=== PATIENT | female | born 1985 | race Caucasian/White ===

== ENCOUNTER 2017-03-16 03:36 | Emergency (ER) | payer MEDICAID ==
[2017-03-16] MEDS ORDERED: TYLENOL ONE (04:27)
[2017-03-16] MEDS ORDERED: TYLENOL PO ONE (04:33)
[2017-03-16 05:11] LABS: Eosinophils % (Auto) 1.4 % (0.0-4.3); Hematocrit 36.7 % (30.3-42.9); Hemoglobin 12.2 gm/dl (10.1-14.3); Mean Corpuscular HGB Conc 33 % (30-34); Mean Corpuscular Hemoglobin 29 pg (28-32); Mean Corpuscular Volume 86 fl (79-97); Platelet Count 231 K/mm3 (140-440); Red Blood Count 4.28 M/mm3 (3.65-5.03); Red Cell Distribution Width 16.6 % (13.2-15.2); White Blood Count 5.4 K/mm3 (4.5-11.0)
[2017-03-16 05:21] LABS: Urine Drugs of Abuse Note Disclamer
[2017-03-16 05:27] LABS: Alanine Aminotransferase 17 units/L (7-56); Albumin 4.1 g/dL (3.9-5); Albumin/Globulin Ratio 1.6 %; Alkaline Phosphatase 82 units/L (35-129); Anion Gap 17 mmol/L; BUN/Creatinine Ratio 20; Bilirubin,Total < 0.20 mg/dL (0.1-1.2); Blood Urea Nitrogen 12 mg/dL (7-17); Calcium 9.1 mg/dL (8.4-10.2); Carbon Dioxide 23 mmol/L (22-30); Chloride 104.5 mmol/L (98-107); Glucose 99 mg/dL (65-100); Potassium 4.7 mmol/L (3.6-5.0); Sodium 140 mmol/L (137-145); Total Protein 6.7 g/dL (6.3-8.2)
[2017-03-16 05:33] LABS: Bilirubin,Urine NEG (Negative); Blood,Urine NEG (Negative); Ketones,Urine NEG (Negative); Leukocyte Esterase,Urine NEG (Negative); Mucus,Urine FEW /HPF; Nitrite,Urine NEG (Negative); Protein,Urine <15 mg/dL mg/dL (Negative); Urobilinogen,Urine < 2.0 mg/dL (<2.0); WBC,Urine < 1.0 /HPF (0.0-6.0)
--- NOTE | 2017-03-16 07:13 | Cat Scan Report ---
FINAL REPORT EXAM: CT HEAD/BRAIN WO CON HISTORY: seizure TECHNIQUE: Routine axial imaging was obtained of the brain without IV contrast. FINDINGS: The ventricular system is appropriate in size and is symmetric. There is no evidence of acute stroke or hemorrhage. The basal cisterns appear normal. The visualized sinuses are clear. The mastoid air cells are well pneumatized. IMPRESSION: Within normal limits.
--- NOTE | 2017-03-16 09:09 | Emergency Department Report ---
ED Seizure HPI - General Chief Complaint: Seizure Stated Complaint: SEIZURE ACTIVITY Time Seen by Provider: 03/16/17 09:08 Source: patient Mode of arrival: Ambulatory Limitations: No Limitations - History of Present Illness Initial Comments: Patient presents with her boyfriend who states that he witnessed a seizure. She had generalized shaking. She bit her tongue. EMS arrived at the scene and transported the patient without incident to this facility in a postictal state. At the time of my encounter the patient was oriented 4 but still a bit lethargic. She denied headache. She denied previous seizure. She denied any fever or chills recently. She had no specific complaint other than that her tongue was sore. MD Complaint: seizure -: Sudden Description of Episode: tonic-clonic movement -: second(s), minutes(s) Witnessed:: Yes Trauma: Yes (bit tongue.) Seizure History: none Place: home Possible Precipitating Event: none Associated Symptoms: denies other symptoms Treatments Prior to Arrival: none - Related Data Previous Rx's Medication Instructions Recorded Last Taken Type Ondansetron [Zofran TAB] 4 mg PO Q8HR PRN #30 tablet 01/12/17 Unknown Rx traMADol [Ultram 50 MG tab] 50 mg PO Q6HR PRN #14 tablet 01/12/17 Unknown Rx levETIRAcetam [Keppra] 500 mg PO BID #60 tablet 03/16/17 Unknown Rx Allergies Allergy/AdvReac Type Severity Reaction Status Date / Time latex Allergy Rash Verified 01/10/17 10:22 ED Review of Systems ROS: Stated complaint: SEIZURE ACTIVITY Other details as noted in HPI Constitutional: denies: chills, fever Eyes: denies: eye pain, eye discharge, vision change ENT: as per HPI. denies: ear pain, throat pain Respiratory: denies: cough, shortness of breath, wheezing Cardiovascular: denies: chest pain, palpitations Endocrine: no symptoms reported Gastrointestinal: denies: abdominal pain, nausea, diarrhea Genitourinary: denies: urgency, dysuria, discharge Musculoskeletal: denies: back pain, joint swelling, arthralgia Skin: denies: rash, lesions Neurological: as per HPI. denies: headache, weakness, paresthesias Psychiatric: denies: anxiety, depression Hematological/Lymphatic: denies: easy bleeding, easy bruising ED Past Medical Hx - Past Medical History Hx Asthma: Yes - Surgical History Hx Appendectomy: Yes Additional Surgical History: tonsillectomy - Social History Smoking Status: Never Smoker Substance Use Type: None - Medications Home Medications: Home Medications Medication Instructions Recorded Confirmed Last Taken Type Ondansetron [Zofran TAB] 4 mg PO Q8HR PRN #30 tablet 01/12/17 Unknown Rx traMADol [Ultram 50 MG tab] 50 mg PO Q6HR PRN #14 tablet 01/12/17 Unknown Rx levETIRAcetam [Keppra] 500 mg PO BID #60 tablet 03/16/17 Unknown Rx ED Physical Exam - General Limitations: No Limitations General appearance: alert, in no apparent distress - Head Head exam: Present: atraumatic, normocephalic - Eye Eye exam: Present: normal appearance - ENT ENT exam: Present: mucous membranes moist, other (abrasion left lateral side of the tongue. No bleeding. Airways patent.) - Neck Neck exam: Present: normal inspection - Respiratory Respiratory exam: Present: normal lung sounds bilaterally. Absent: respiratory distress - Cardiovascular Cardiovascular Exam: Present: regular rate, normal rhythm. Absent: systolic murmur, diastolic murmur, rubs, gallop - GI/Abdominal GI/Abdominal exam: Present: soft, normal bowel sounds. Absent: distended, tenderness, guarding, rebound, rigid - Extremities Exam Extremities exam: Present: normal inspection - Back Exam Back exam: Present: normal inspection - Neurological Exam Neurological exam: Present: alert, oriented X3, CN II-XII intact. Absent: motor sensory deficit - Psychiatric Psychiatric exam: Present: normal affect, normal mood - Skin Skin exam: Present: warm, dry, intact, normal color. Absent: rash ED Course Vital Signs 03/16/17 03/16/17 03/16/17 04:11 06:46 07:10 Temperature 98.1 F 98.7 F Pulse Rate 92 H 66 Respiratory 17 Rate Blood Pressure 123/78 Blood Pressure 108/62 [Left] O2 Sat by Pulse 100 98 98 Oximetry 03/16/17 03/16/17 03/16/17 07:15 07:30 07:45 Temperature Pulse Rate Respiratory Rate Blood Pressure 110/64 117/63 117/65 Blood Pressure [Left] O2 Sat by Pulse 97 93 96 Oximetry 03/16/17 03/16/17 03/16/17 08:00 08:15 08:30 Temperature Pulse Rate Respiratory Rate Blood Pressure 119/73 110/68 117/65 Blood Pressure [Left] O2 Sat by Pulse 95 96 97 Oximetry 03/16/17 03/16/17 03/16/17 08:45 09:00 09:15 Temperature Pulse Rate Respiratory Rate Blood Pressure 114/65 127/72 118/75 Blood Pressure [Left] O2 Sat by Pulse 96 97 99 Oximetry 03/16/17 03/16/17 03/16/17 09:30 09:45 10:00 Temperature Pulse Rate Respiratory Rate Blood Pressure 112/65 105/60 110/51 Blood Pressure [Left] O2 Sat by Pulse 100 97 94 Oximetry 03/16/17 03/16/17 03/16/17 10:16 10:30 10:45 Temperature Pulse Rate 67 62 Respiratory 14 14 Rate Blood Pressure 112/65 112/73 120/67 Blood Pressure [Left] O2 Sat by Pulse 99 98 96 Oximetry 03/16/17 03/16/17 03/16/17 11:00 11:15 11:30 Temperature Pulse Rate 64 65 69 Respiratory 20 16 16 Rate Blood Pressure 120/61 108/62 112/66 Blood Pressure [Left] O2 Sat by Pulse 95 96 97 Oximetry 03/16/17 03/16/17 03/16/17 11:45 12:00 12:15 Temperature Pulse Rate 65 66 71 Respiratory 15 16 18 Rate Blood Pressure 113/62 118/66 105/70 Blood Pressure [Left] O2 Sat by Pulse 97 95 98 Oximetry 03/16/17 12:32 Temperature Pulse Rate Respiratory Rate Blood Pressure 105/70 Blood Pressure [Left] O2 Sat by Pulse 93 Oximetry ED Medical Decision Making - Lab Data Result diagrams: 03/16/17 04:49 03/16/17 04:49 Laboratory Results - last 24 hr 03/16/17 03/16/17 03/16/17 04:29 04:31 04:49 WBC 5.4 RBC 4.28 Hgb 12.2 Hct 36.7 MCV 86 MCH 29 MCHC 33 RDW 16.6 H Plt Count 231 Lymph % (Auto) 21.9 [place] % (Auto) 6.1 Eos % (Auto) 1.4 Baso % (Auto) 1.0 Lymph # 1.2 Sutton # 0.3 Eos # 0.1 Baso # 0.1 Seg Neutrophils % 69.6 Seg Neutrophils # 3.7 Sodium Potassium Chloride Carbon Dioxide Anion Gap BUN Creatinine Estimated GFR BUN/Creatinine Ratio Glucose Calcium Total Bilirubin AST ALT Alkaline Phosphatase Total Protein Albumin Albumin/Globulin Ratio Urine Color Yellow Urine Turbidity Clear Urine pH 5.0 Ur Specific [place] 1.020 Urine Protein <15 mg/dl Urine Glucose (UA) Neg Urine Ketones Neg Urine Blood Neg Urine Nitrite Neg Urine Bilirubin Neg Urine Urobilinogen < 2.0 Ur Leukocyte Esterase Neg Urine WBC (Auto) < 1.0 Urine RBC (Auto) 2.0 U Epithel Cells (Auto) 1.0 Urine Mucus Few Urine HCG, Qual Negative Urine Opiates Screen Presumptive negative Urine Methadone Screen Presumptive negative Ur Barbiturates Screen Presumptive negative Ur Phencyclidine Scrn Presumptive negative Ur Amphetamines Screen Presumptive negative U Benzodiazepines Scrn Presumptive negative Urine Cocaine Screen Presumptive negative U Marijuana (THC) Screen Presumptive positive Drugs of Abuse Note Disclamer 03/16/17 04:49 WBC RBC Hgb Hct MCV MCH MCHC RDW Plt Count Lymph % (Auto) [place] % (Auto) Eos % (Auto) Baso % (Auto) Lymph # [place] # Eos # Baso # Seg Neutrophils % Seg Neutrophils # Sodium 140 Potassium 4.7 Chloride 104.5 Carbon Dioxide 23 Anion Gap 17 BUN 12 Creatinine 0.6 L Estimated GFR > 60 BUN/Creatinine Ratio 20 Glucose 99 Calcium 9.1 Total Bilirubin < 0.20 AST 17 ALT 17 Alkaline Phosphatase 82 Total Protein 6.7 Albumin 4.1 Albumin/Globulin Ratio 1.6 Urine Color Urine Turbidity Urine pH Ur Specific [place] Urine Protein Urine Glucose (UA) Urine Ketones Urine Blood Urine Nitrite Urine Bilirubin Urine Urobilinogen Ur Leukocyte Esterase Urine WBC (Auto) Urine RBC (Auto) U Epithel Cells (Auto) Urine Mucus Urine HCG, Qual Urine Opiates Screen Urine Methadone Screen Ur Barbiturates Screen Ur Phencyclidine Scrn Ur Amphetamines Screen U Benzodiazepines Scrn Urine Cocaine Screen U Marijuana (THC) Screen Drugs of Abuse Note Critical care attestation.: If time is entered above; I have spent that time in minutes in the direct care of this critically ill patient, excluding procedure time. ED Disposition Clinical Impression: Seizure Abrasion of tongue Qualifiers: Encounter type: initial encounter Qualified Code(s): S00.512A - Abrasion of oral cavity, initial encounter Disposition: TO HOME OR SELFCARE Is pt being admited?: No Does the pt Need Aspirin: No Condition: Stable Instructions: New-Onset Seizure in Adults (ED) Additional Instructions: Do not drive until cleared by neurologist or qualify physician. See referral. Rx for seizure medicine. Also he may seek follow-up at this outside medical clinic. Prescriptions: levETIRAcetam [Keppra] 500 mg PO BID #60 tablet Referrals: [facility] [Provider Group] - 3-5 Days JAGJIT GARRISON MD [Staff Physician] - 3-5 Days PRIMARY CAREMD [Primary Care Provider] - 3-5 Days Time of Disposition: 14:00
[2017-03-16] MEDS ORDERED: KEPPRA 1,000 MG/NS 0.75% 100ML 1,000 MG/100 ML BAG IV ONE (09:29)
[2017-03-16 13:01] VITALS: BP 105/70
== END 2017-03-16 13:04 | disposition home or self-care (01) ==
LOC: ED 03:36
DX: S00.512A Abrasion of oral cavity, initial encounter (principal); R56.9 Unspecified convulsions; J45.909 Unspecified asthma, uncomplicated; X58.XXXA Exposure to other specified factors, initial encounter; Y93.89 Activity, other specified; Y92.89 Other specified places as the place of occurrence of the external cause; Y99.8 Other external cause status
CPT/HCPCS: 36415; 70450; 80053; 80307; 81001; 81025; 85025; 96374; 99284; J1953

== ENCOUNTER 2017-08-31 11:07 | Emergency (ER) | payer SELFPAY ==
[2017-08-31 11:37] LABS: Basophils # (Auto) 0.1 K/mm3 (0.0-0.1); Basophils % (Auto) 0.5 % (0.0-1.8); Eosinophils % (Auto) 0.1 % (0.0-4.3); Hematocrit 38.3 % (30.3-42.9); Hemoglobin 12.3 gm/dl (10.1-14.3); Lymphocytes # (Auto) 1.4 K/mm3 (1.2-5.4); Lymphocytes % (Auto) 13.8 % (13.4-35.0); Mean Corpuscular HGB Conc 32 % (30-34); Mean Corpuscular Volume 80 fl (79-97); Monocytes # (Auto) 0.9 K/mm3 (0.0-0.8); Monocytes % (Auto) 8.9 % (0.0-7.3); Platelet Count 322 K/mm3 (140-440); Red Blood Count 4.77 M/mm3 (3.65-5.03); Red Cell Distribution Width 16.6 % (13.2-15.2)
[2017-08-31 11:48] LABS: Mean Corpuscular Hemoglobin 26 pg (28-32)
[2017-08-31 12:02] LABS: Alanine Aminotransferase 35 units/L (7-56); Albumin 4.7 g/dL (3.9-5); BUN/Creatinine Ratio 28; Blood Urea Nitrogen 17 mg/dL (7-17); Hemolysis Index 4; Lipase 58 units/L (13-60)
[2017-08-31 12:09] LABS: Bilirubin,Urine NEG (Negative); Blood,Urine NEG (Negative); Color,Urine Yellow (Yellow); Mucus,Urine FEW /HPF; Urobilinogen,Urine < 2.0 mg/dL (<2.0)
[2017-08-31] MEDS ORDERED: NACL 0.9% 1000 ML 1,000 ML IV ONE (13:54)
[2017-08-31] MEDS ORDERED: ZOFRAN IV ONE (13:54)
--- NOTE | 2017-08-31 13:59 | Emergency Department Report ---
Blank Doc - Documentation Documentation: 32-year-old female with no significant past medical history team in complaining of nausea vomiting for 3 days after eating Vietnamese food. Patient states she ate some lemon pepper chicken and since then she's been having nausea vomiting abdominal pain. She denies any chest pain shortness of breath. She denies fever chills. Patient in no acute distress. P; IV fluids, Ct scan
--- NOTE | 2017-08-31 15:44 | Cat Scan Report ---
FINAL REPORT EXAM: CT ABDOMEN PELVIS WO CON HISTORY: abdominal pain TECHNIQUE: Standard unenhanced CT of the abdomen and pelvis. Coronal and sagittal reconstruction was also performed. PRIORS: CT a/P 01/10/2017 FINDINGS: Within the abdomen, the liver, spleen, pancreas, gallbladder, adrenal glands, and right kidney are unremarkable. There are 2 nonobstructing calculi in the lower pole left kidney. No evidence for retroperitoneal or pelvic lymphadenopathy is seen. The bowel loops have normal caliber. No soft tissue mass, fluid collection, inflammatory change, or free air is seen within the abdomen or pelvis. The appendix is not visualized. Within the pelvis, the bladder demonstrates mild diffuse wall prominence, stable. No intraluminal air within the bladder is seen. The uterus is normal. Multiple tiny cysts are present in the left ovary, likely the physiologic. A sliver of free fluid in the cul-de-sac is noted. No evidence for mass or lymphadenopathy is seen in the pelvis. Images through the upper abdomen include the lung bases which demonstrates linear scarring in the right middle lobe and left lower lobe, stable. Bony structures show no focal abnormalities and are intact. IMPRESSION: 1. no acute intra-abdominal process noted. 2. Nonobstructing left renal calculi 3. Probable physiologic small cyst in the left ovary with sliver of free fluid in the cul-de-sac, nonspecific. 4. The bladder wall is mildly prominent throughout but this is a stable feature.
--- NOTE | 2017-08-31 17:27 | Emergency Department Report ---
Vomiting/Diarrhea - HPI Chief Complaint: Abdominal Pain Stated Complaint: VOMITING Time Seen by Provider: 08/31/17 13:46 Duration: 3 Days Severity: moderate Nausea/Vomiting Severity: Moderate Diarrhea Severity: None Pain Location: Generalized Pain Severity: Mild Symptoms: Yes Watery Diarrhea, Yes Able to Tolerate Fluids, No Bloody diarrhea, No Fever, No Recent Unusual Foods (lemon pepper wings from [employer] restaurant), No Recent Untreated Water, No Recent use of Antibiotics, No Family w/ Similar Symptoms, No Contacts w/ Similar Symptoms, No Rash, No Hematuria, No Recent URI Symptoms Other History: This is a 32-year-old -[place] Citizen female Presents with nausea and vomiting and abdominal pain for 3 days. She has no significant past medical history.patient reports eating lemon pepper chicken from [employer] restaurant 3 days ago and having nausea and vomiting with diarrhea every since. She has not taken anything for symptom relief. She denies any chest pain, shortness of breath, fever and chills. ED Review of Systems ROS: Stated complaint: VOMITING Other details as noted in HPI Constitutional: denies: chills, fever Respiratory: denies: cough, shortness of breath, wheezing Cardiovascular: denies: chest pain, palpitations, edema, syncope Gastrointestinal: abdominal pain (diffuse abdominal pain), nausea, vomiting. denies: diarrhea Neurological: denies: headache, weakness, numbness, paresthesias Psychiatric: denies: anxiety, depression ED Past Medical Hx - Past Medical History Hx Asthma: Yes - Surgical History Hx Appendectomy: Yes Additional Surgical History: tonsillectomy - Social History Smoking Status: Never Smoker Substance Use Type: None - Medications Home Medications: Home Medications Medication Instructions Recorded Confirmed Last Taken Type Ondansetron [Zofran TAB] 4 mg PO Q8HR PRN #30 tablet 01/12/17 Unknown Rx traMADol [Ultram 50 MG tab] 50 mg PO Q6HR PRN #14 tablet 01/12/17 Unknown Rx levETIRAcetam [Keppra] 500 mg PO BID #60 tablet 03/16/17 Unknown Rx Ondansetron [Zofran Odt] 4 mg PO TID PRN #20 tab.rapdis 08/31/17 Unknown Rx Vomiting Diarrhea Exam - Exam General: Vital signs noted. No distress. Alert and acting appropriately. HEENT: Yes Moist Mucous Membranes, Yes Rhinorrhea (turbinates mildly congested with clear discharge), No Pharyngeal Erythema, No Pharyngeal Exudates, No Conjuctival Injection, No Frontal Tenderness, No Maxillary Tenderness Neck: No Adenopathy, No Rigidity Lungs: Yes Clear Lung Sounds, Yes Good Air Exchange, No Wheezes, No Stridor, No Cough, No Nasal Flaring, No Retractions, No Use of Accessory Muscles Heart exam: Regular: Yes, Murmur: No, Tachycardia: No Abdomen: Tenderness: Yes (RLQ and LLQ), Peritoneal Signs: No, Distention: No, Hyperactive Bowel sounds: No Skin exam: Rash: No, Edema: No, Normal turgor: Yes Neurologic: Alert and oriented, no deficits. Musculoskeletal: Unremarkable. ED Course Vital Signs 08/31/17 11:18 Temperature 98.7 F Pulse Rate 73 Respiratory 20 Rate Blood Pressure 130/88 O2 Sat by Pulse 100 Oximetry ED Medical Decision Making - Lab Data Result diagrams: 08/31/17 11:20 08/31/17 11:20 - Radiology Data Radiology results: report reviewed CT of abdomen: no acute intraabdominal process. - Medical Decision Making 32 y.o. female that presents with abdominal pain, nausea and vomiting for 2 days. Patient examined by me, slightly distressed. Vital stable. Given CT of abdomen and pelvis obtained. Patient informed of normal scan. Given 1 L normal saline bolus and Zofran 4 mg IV. Obtained CBC, UA, & CMP, all unremarkable. Start Zofran for gastroenteritis and review supportive care instructions with patient. Discharged home. Follow up with PCP in 48-72 hours. Critical care attestation.: If time is entered above; I have spent that time in minutes in the direct care of this critically ill patient, excluding procedure time. ED Disposition Clinical Impression: Gastroenteritis Disposition: DC-01 TO HOME OR SELFCARE Is pt being admited?: No Does the pt Need Aspirin: No Condition: Stable Instructions: Gastroenteritis (ED), Acute Nausea and Vomiting (ED), Abdominal Pain (ED) Additional Instructions: Frequent hand washing is important to reduce spread. Prompt disinfection of contaminated surfaces with household chlorine bleach- based relocation specialist and washing of soiled clothing and bedding should be advised. If food or water is thought to be contaminated, it should be avoided. Increase fluid intake. Drinks high in sugars such as carbonated soft drinks, fruit juice, and highly sugared liquids should be avoided. Prescriptions: Ondansetron [Zofran Odt] 4 mg PO TID PRN #20 tab.rapdis PRN Reason: Nausea And Vomiting Referrals: [facility] [Outside] - 3-5 Days [facility] [Outside] - 3-5 Days [facility] [Outside] - 3-5 Days Forms: Work/School Release Form(ED) Time of Disposition: 17:35 Print Language: KITTITIAN
[2017-08-31 17:45] VITALS: BP 128/70
== END 2017-08-31 17:44 | disposition home or self-care (01) ==
LOC: ED 11:07
DX: K52.9 Noninfective gastroenteritis and colitis, unspecified (principal); J45.909 Unspecified asthma, uncomplicated; Z90.89 Acquired absence of other organs
CPT/HCPCS: 36415; 74176; 80053; 81001; 83690; 84703; 85025; 96361; 96374; 99284; J2405; J7030

== ENCOUNTER 2017-12-26 03:50 | Inpatient (IN) | payer OTHER ==
[2017-12-26] MEDS ORDERED: NACL 0.9% 1000 ML IV ONE (04:21)
[2017-12-26] MEDS ORDERED: ZOFRAN IV ONE (04:24)
[2017-12-26] MEDS ORDERED: SUBLIMAZE IV ONE (04:24)
--- NOTE | 2017-12-26 04:25 | Emergency Department Report ---
<LISBETH GERARDO - Last Filed: 12/26/17 05:49> ED General Adult HPI - General Chief complaint: Abdominal Pain Stated complaint: ABD PAIN Time Seen by Provider: 12/26/17 04:09 Source: patient, family, RN notes reviewed Mode of arrival: Ambulatory Limitations: Physical Limitation - History of Present Illness Initial comments: This is a 32-year-old female who is not known to this provider previously. Has a past medical history of possible bacterial colitis. The patient presents to the ER today with a complaint of abdominal pain, nausea, vomiting, headache, malaise, fatigue. She reports a global headache a few days ago, which is not sudden or thunderclap in nature. There is no neck pain or neck stiffness. She reports profuse nausea and vomiting over the past few days, and onset of substernal chest pain 2 days ago, worsened with vomiting. She denies DVT, pulmonary embolus risk factors. Her pain is constant, her abdominal pain increases with palpation and decreases with rest, she has trouble localizing her pain. -: Gradual Location: head, chest, abdomen Quality: aching Consistency: intermittent Improves with: other Worsens with: other Associated Symptoms: chest pain, fever/chills, headaches, loss of appetite, malaise, nausea/vomiting, weakness. denies: confusion, cough, diaphoresis, rash , seizure, shortness of breath, syncope - Related Data Previous Rx's Medication Instructions Recorded Last Taken Type Ondansetron [Zofran TAB] 4 mg PO Q8HR PRN #30 tablet 01/12/17 Unknown Rx traMADol [Ultram 50 MG tab] 50 mg PO Q6HR PRN #14 tablet 01/12/17 Unknown Rx levETIRAcetam [Keppra] 500 mg PO BID #60 tablet 03/16/17 Unknown Rx Ondansetron [Zofran Odt] 4 mg PO TID PRN #20 tab.rapdis 08/31/17 Unknown Rx Allergies Allergy/AdvReac Type Severity Reaction Status Date / Time latex Allergy Rash Verified 08/31/17 11:17 ED Review of Systems ROS: Stated complaint: ABD PAIN Other details as noted in HPI Constitutional: malaise Eyes: denies: eye discharge ENT: denies: epistaxis Respiratory: denies: cough Cardiovascular: chest pain Gastrointestinal: abdominal pain, nausea, vomiting Genitourinary: denies: dysuria Musculoskeletal: arthralgia Skin: denies: lesions Neurological: headache, weakness Psychiatric: anxiety ED Past Medical Hx - Past Medical History Previous Medical History?: Yes Hx Asthma: Yes - Surgical History Hx Appendectomy: Yes Additional Surgical History: tonsillectomy - Social History Smoking Status: Current Every Day Smoker Substance Use Type: Marijuana - Medications Home Medications: Home Medications Medication Instructions Recorded Confirmed Last Taken Type Ondansetron [Zofran TAB] 4 mg PO Q8HR PRN #30 tablet 01/12/17 12/26/17 Unknown Rx traMADol [Ultram 50 MG tab] 50 mg PO Q6HR PRN #14 tablet 01/12/17 12/26/17 Unknown Rx levETIRAcetam [Keppra] 500 mg PO BID #60 tablet 03/16/17 12/26/17 Unknown Rx Ondansetron [Zofran Odt] 4 mg PO TID PRN #20 tab.rapdis 08/31/17 12/26/17 Unknown Rx ED Physical Exam - General Limitations: No Limitations General appearance: alert, in distress, obese - Head Head exam: Present: atraumatic, normocephalic - Eye Eye exam: Present: normal appearance, EOMI. Absent: nystagmus - ENT ENT exam: Present: normal exam, normal orophraynx, mucous membranes moist, normal external ear exam - Neck Neck exam: Present: normal inspection, full ROM - Respiratory Respiratory exam: Present: normal lung sounds bilaterally. Absent: respiratory distress - Cardiovascular Cardiovascular Exam: Present: normal rhythm, tachycardia, normal heart sounds. Absent: systolic murmur, diastolic murmur, rubs, gallop - GI/Abdominal GI/Abdominal exam: Present: soft, tenderness, normal bowel sounds, other (there is right upper quadrant tenderness. There is a positive Gonzalez sign.). Absent : distended, guarding, rebound, rigid, pulsatile mass - Extremities Exam Extremities exam: Present: normal inspection, full ROM, normal capillary refill , other (2+ pulses noted in the bilateral upper, lower extremities. Compartments soft. No long bony tenderness. The pelvis is stable.). Absent: tenderness, pedal edema, joint swelling, calf tenderness - Back Exam Back exam: Present: normal inspection, full ROM, CVA tenderness (R), CVA tenderness (L), paraspinal tenderness. Absent: tenderness - Neurological Exam Neurological exam: Present: alert, oriented X3, CN II-XII intact, other ( Extraocular movements intact. Tongue midline. No facial droop. Facial sensation intact to light touch in the V1, V2, V3 distribution bilaterally. 5 and 5 strength in 4 extremities.. Sensation is intact to light touch in 4 extremities.). Absent: motor sensory deficit - Psychiatric Psychiatric exam: Present: anxious - Skin Skin exam: Present: warm, dry, intact, normal color. Absent: rash ED Course Vital Signs 12/26/17 12/26/17 12/26/17 03:58 04:13 04:15 Temperature 99.1 F Pulse Rate 147 H 132 H 127 H Respiratory 28 H 12 13 Rate Blood Pressure 109/70 127/85 O2 Sat by Pulse 100 100 Oximetry 12/26/17 12/26/17 12/26/17 04:30 04:46 05:00 Temperature Pulse Rate 129 H 101 H 111 H Respiratory 12 14 22 Rate Blood Pressure 127/85 141/105 140/87 O2 Sat by Pulse 100 96 88 Oximetry 12/26/17 12/26/17 12/26/17 05:15 05:25 05:30 Temperature Pulse Rate 87 90 Respiratory 11 L 15 10 L Rate Blood Pressure 135/88 144/90 O2 Sat by Pulse 97 75 L Oximetry 12/26/17 12/26/17 06:32 06:46 Temperature Pulse Rate 92 H 92 H Respiratory 23 14 Rate Blood Pressure 132/100 144/90 O2 Sat by Pulse 100 100 Oximetry - Reevaluation(s) Reevaluation #1: 12/26/17 05:51 Differential diagnoses, including but not limited to: GERD, gastritis, pancreatitis, cholecystitis, pneumonia, reflux, esophagitis, acute coronary syndrome, pericarditis, myocarditis, viral syndrome, bacteremia Assessment and plan: 32-year-old female with headache, chest pain, abdominal pain, nausea and vomiting. The patient is most tender in her right upper quadrant. She meets systemic inflammatory response syndrome criteria, as suspect an intra-abdominal infection is the primary etiology of the patient's symptomatology. Based on her history and physical, I think acute coronary syndrome is unlikely, and pericarditis, myocarditis equally unlikely. Laboratory studies thus far demonstrate leukocytosis and lactic acidosis. Basic metabolic panel has still not resulted as of yet. Patient will be treated according to the sepsis pathway empirically. CT scan of the brain, x- ray of the chest, right upper quadrant ultrasound pending. Care will be transferred to the oncoming ER physician, Dr. Rob Godwin to follow up on aforementioned imaging. If right upper quadrant ultrasound is nondiagnostic, would recommend advanced imaging such as CT scan of the abdomen and pelvis to better delineate and elucidate the cause of patient's symptomatology. The patient final disposition will depend on her imaging. ED Medical Decision Making - Lab Data Result diagrams: 12/26/17 04:30 Vital Signs 12/26/17 12/26/17 12/26/17 03:58 04:13 04:15 Temperature 99.1 F Pulse Rate 147 H 132 H 127 H Respiratory 28 H 12 13 Rate Blood Pressure 109/70 127/85 O2 Sat by Pulse 100 100 Oximetry 12/26/17 12/26/17 12/26/17 04:30 04:46 05:00 Temperature Pulse Rate 129 H 101 H 111 H Respiratory 12 14 22 Rate Blood Pressure 127/85 141/105 140/87 O2 Sat by Pulse 100 96 88 Oximetry 12/26/17 12/26/17 05:15 05:25 Temperature Pulse Rate 87 Respiratory 11 L 15 Rate Blood Pressure 135/88 O2 Sat by Pulse 97 Oximetry Lab Results 12/26/17 12/26/17 12/26/17 Range/Units 04:30 04:30 04:30 WBC 16.4 H (4.5-11.0) K/mm3 RBC 5.86 H (3.65-5.03) M/mm3 Hgb 16.3 H (10.1-14.3) gm/dl Hct 47.9 H (30.3-42.9) % MCV 82 (79-97) fl MCH 28 (28-32) pg MCHC 34 (30-34) % RDW 15.9 H (13.2-15.2) % Plt Count 276 (140-440) K/mm3 Lymph % (Auto) 23.5 (13.4-35.0) % [place] % (Auto) 10.0 H (0.0-7.3) % Eos % (Auto) 0.1 (0.0-4.3) % Baso % (Auto) 0.6 (0.0-1.8) % Lymph # 3.9 (1.2-5.4) K/mm3 [place] # 1.6 H (0.0-0.8) K/mm3 Eos # 0.0 (0.0-0.4) K/mm3 Baso # 0.1 (0.0-0.1) K/mm3 Seg Neutrophils % 65.8 (40.0-70.0) % Seg Neutrophils # 10.8 H (1.8-7.7) K/mm3 PT 14.3 (12.2-14.9) Sec. INR 1.05 (0.87-1.13) APTT 27.1 (24.2-36.6) Sec. Lactic Acid 3.20 H* (0.7-2.0) mmol/L Magnesium (1.7-2.3) mg/dL Troponin T (0.00-0.029) ng/mL Lipase (13-60) units/L HCG, Quant (0-4) mIU/mL 12/26/17 12/26/17 12/26/17 Range/Units 04:30 04:30 04:30 WBC (4.5-11.0) K/mm3 RBC (3.65-5.03) M/mm3 Hgb (10.1-14.3) gm/dl Hct (30.3-42.9) % MCV (79-97) fl MCH (28-32) pg MCHC (30-34) % RDW (13.2-15.2) % Plt Count (140-440) K/mm3 Lymph % (Auto) (13.4-35.0) % [place] % (Auto) (0.0-7.3) % Eos % (Auto) (0.0-4.3) % Baso % (Auto) (0.0-1.8) % Lymph # (1.2-5.4) K/mm3 [place] # (0.0-0.8) K/mm3 Eos # (0.0-0.4) K/mm3 Baso # (0.0-0.1) K/mm3 Seg Neutrophils % (40.0-70.0) % Seg Neutrophils # (1.8-7.7) K/mm3 PT (12.2-14.9) Sec. INR (0.87-1.13) APTT (24.2-36.6) Sec. Lactic Acid (0.7-2.0) mmol/L Magnesium 2.00 (1.7-2.3) mg/dL Troponin T 0.019 (0.00-0.029) ng/mL Lipase 198 H (13-60) units/L HCG, Quant < 2 (0-4) mIU/mL - EKG Data -: EKG Interpreted by Me EKG shows normal: sinus rhythm Rate: tachycardia - EKG Data 12/26/17 05:53 Time is, 93 bpm, normal axis, normal intervals, high left ventricular boxes, not a stemi - Radiology Data Radiology results: pending Critical care attestation.: If time is entered above; I have spent that time in minutes in the direct care of this critically ill patient, excluding procedure time. ED Disposition Clinical Impression: SIRS (systemic inflammatory response syndrome), Acute hypokalemia, ISA (acute kidney injury), Dehydration, Acute hyponatremia, Marijuana abuse Abdominal pain Qualifiers: Abdominal location: right upper quadrant Qualified Code(s): R10.11 - Right upper quadrant pain Sepsis Qualifiers: Sepsis type: sepsis due to unspecified organism Qualified Code(s): A41.9 - Sepsis, unspecified organism Nausea and vomiting Qualifiers: Vomiting type: unspecified Vomiting Intractability: non-intractable Qualified Code(s): R11.2 - Nausea with vomiting, unspecified Acute pancreatitis Qualifiers: Pancreatitis type: unspecified pancreatitis type Acute pancreatitis complication: unspecified Qualified Code(s): K85.90 - Acute pancreatitis without necrosis or infection, unspecified Disposition: -09 OP ADMIT IP TO THIS HOSP Is pt being admited?: Yes Condition: Good <ROB CASTRO - Last Filed: 12/26/17 09:34> ED Course - Reevaluation(s) Reevaluation #2: 12/26/17 07:06 I received signout from Dr. Gerardo regarding this patient. Patient came in with right upper quadrant abdominal pain which has been going on for the past 6 days. She has been vomiting and has not been able to keep anything down. CT scan of the abdomen and pelvis and ultrasound were essentially negative. I will admit patient to the hospitalist for sepsis management. Patient also has hypokalemia. Reevaluation #3: 12/26/17 07:16 I consulted the hospitalist electronics inspector Dr. Adler. She will admit patient to the hospital for further evaluation and management. She is aware that the urinalysis is pending at this time. ED Medical Decision Making - Lab Data Result diagrams: 12/26/17 04:30 12/26/17 04:30 ED Disposition Is pt being admited?: Yes Time of Disposition: 07:10
[2017-12-26 05:13] LABS: Basophils # (Auto) 0.1 K/mm3 (0.0-0.1); Basophils % (Auto) 0.6 % (0.0-1.8); Eosinophils % (Auto) 0.1 % (0.0-4.3); Hematocrit 47.9 % (30.3-42.9); Hemoglobin 16.3 gm/dl (10.1-14.3); Lymphocytes # (Auto) 3.9 K/mm3 (1.2-5.4); Lymphocytes % (Auto) 23.5 % (13.4-35.0); Mean Corpuscular HGB Conc 34 % (30-34); Mean Corpuscular Hemoglobin 28 pg (28-32); Mean Corpuscular Volume 82 fl (79-97); Monocytes # (Auto) 1.6 K/mm3 (0.0-0.8); Platelet Count 276 K/mm3 (140-440); Red Blood Count 5.86 M/mm3 (3.65-5.03); Red Cell Distribution Width 15.9 % (13.2-15.2)
[2017-12-26] MEDS ORDERED: REGLAN ONE (05:26)
[2017-12-26 05:27] LABS: Partial Thromboplastin Time 27.1 Sec. (24.2-36.6)
[2017-12-26] MEDS ORDERED: REGLAN IV ONE (05:30)
[2017-12-26 05:31] LABS: INR 1.05 (0.87-1.13)
[2017-12-26] MEDS ORDERED: DILAUDID IV ONE (05:34)
[2017-12-26] MEDS ORDERED: ZOSYN/NS 4.5GM/100ML 4.5 GM/100 ML VIAL IV SCH (06:00)
[2017-12-26 06:10] LABS: Albumin 4.8 g/dL (3.9-5); Calcium 10.4 mg/dL (8.4-10.2)
--- NOTE | 2017-12-26 06:11 | Cat Scan Report ---
FINAL REPORT PROCEDURE: CT HEAD/BRAIN WO CON TECHNIQUE: Computerized tomography of the head was performed without contrast material. HISTORY: dueñas n/v COMPARISON: No prior studies are available for comparison. FINDINGS: Skull and scalp: Normal. Paranasal sinuses: Normal. Ventricles and subarachnoid spaces: Normal. Cerebrum: No evidence of hemorrhage, acute infarction or mass . Cerebellum and brainstem: No evidence of hemorrhage, acute infarction or mass. Vasculature: Normal. Comments: None. IMPRESSION: Normal Examination
--- NOTE | 2017-12-26 06:22 | Ultrasound Report ---
FINAL REPORT PROCEDURE: US ABDOMEN LIMITED TECHNIQUE: Real-time sonography in multiple planes of the gallbladder fossa and CBD with imaging of the adjacent liver, pancreas, and right kidney was performed with image documentation. CPT 49222 HISTORY: ruq pain COMPARISON: No prior studies are available for comparison. FINDINGS: Liver: Normal size and echotexture with no evidence of cystic or solid mass lesion. Gallbladder: Fluid filled. No gallstones, wall thickening, pericholecystic fluid, or sonographic Gonzalez's sign . Intrahepatic bile ducts: Normal . Extrahepatic bile ducts: Normal . Pancreas: Normal as visualized with suboptimal depiction of the pancreatic tail. Right kidney: Normal echotexture. No focal renal mass, calculus, or hydronephrosis. Other: No free fluid. IMPRESSION: Normal Examination
--- NOTE | 2017-12-26 06:23 | XRay Report ---
FINAL REPORT PROCEDURE: XR CHEST 1V AP TECHNIQUE: Chest radiograph anteroposterior view. CPT 26872 HISTORY: cp COMPARISON: No prior studies are available for comparison. FINDINGS: Heart: Normal. Mediastinum/Vessels: Normal. Lungs/Pleural space: Normal. Bony thorax: No acute osseous abnormality. Life support devices: None. IMPRESSION: No acute cardiopulmonary abnormality.
--- NOTE | 2017-12-26 06:45 | Cat Scan Report ---
FINAL REPORT PROCEDURE: CT ABDOMEN PELVIS WO CON TECHNIQUE: Computerized axial tomography of the abdomen and pelvis was performed without intravenous contrast. This study is performed without intravascular contrast material and its sensitivity for abdominal and pelvic pathology, including neoplasms, inflammation, abscess, free fluid, thrombosis, arterial dissection and infarction, is reduced compared with a contrast enhanced study. HISTORY: abdominal pain COMPARISON: No prior studies are available for comparison. FINDINGS: Visualized lower thorax: No significant abnormality. Liver: Normal size and attenuation. Spleen: Normal size and attenuation. Gallbladder and biliary system: Normal. Pancreas: Normal. Adrenals: Normal. Kidneys: There are stones in the lower pole the left kidney. There is no hydronephrosis. GI tract: There has been an appendectomy. There is no bowel obstruction, colitis or enteritis.. Lymph nodes and mesentery: Normal. Vasculature: Normal. Bladder: Normal. Reproductive organs: Uterus and ovaries are unremarkable. Peritoneum: There is a small amount of free pelvic fluid which is nonspecific.. Musculoskeletal structures: No significant abnormality. Other: None. IMPRESSION: There are stones in the lower pole the left kidney. There is no hydronephrosis. There has been an appendectomy. There is no bowel obstruction, colitis or enteritis.. Uterus and ovaries are unremarkable. There is a small amount of free pelvic fluid which is nonspecific.. .
[2017-12-26] MEDS ORDERED: APRESOLINE IV PRN (07:32)
[2017-12-26] MEDS ORDERED: ZOFRAN IV PRN ×2 (07:32→07:45)
[2017-12-26] MEDS ORDERED: ATIVAN IV PRN (07:32)
[2017-12-26] MEDS ORDERED: SODIUM CHLORIDE FLUSH SYRINGE 10 ML IV PRN (07:45)
[2017-12-26] MEDS ORDERED: TYLENOL PO PRN (07:45)
--- NOTE | 2017-12-26 08:46 | History and Physical Report ---
History of Present Illness Date of examination: 12/26/17 Date of admission: 12/26/17 07:15 Chief complaint: abdominal pain History of present illness: This is a 32-year-old female who is not known to this provider previously. Has a past medical history of possible bacterial colitis. The patient presents to the ER today with a complaint of abdominal pain, nausea, vomiting, headache, malaise, fatigue. She reports a global headache a few days ago, which is not sudden or thunderclap in nature. There is no neck pain or neck stiffness. She reports profuse nausea and vomiting over the past few days, and onset of substernal chest pain 2 days ago, worsened with vomiting. She denies DVT, pulmonary embolus risk factors. Her pain is constant, her abdominal pain increases with palpation and decreases with rest, she has trouble localizing her pain. Past Medical Hx - Past Medical History Previous Medical History?: Yes Hx Asthma: Yes - Surgical History Hx Appendectomy: Yes Additional Surgical History: tonsillectomy - Social History Smoking Status: Current Every Day Smoker Substance Use Type: Marijuana - Family History Hx HTN: Yes Review of Systems Constitutional: malaise Eyes: denies: eye discharge ENT: denies: epistaxis Respiratory: denies: cough Cardiovascular: chest pain Gastrointestinal: abdominal pain, nausea, vomiting Genitourinary: denies: dysuria Musculoskeletal: arthralgia Skin: denies: lesions Neurological: headache, weakness Psychiatric: anxiety Medications and Allergies Allergies Allergy/AdvReac Type Severity Reaction Status Date / Time latex Allergy Rash Verified 08/31/17 11:17 Home Medications Medication Instructions Recorded Confirmed Last Taken Type Ondansetron [Zofran TAB] 4 mg PO Q8HR PRN #30 tablet 01/12/17 12/26/17 Unknown Rx traMADol [Ultram 50 MG tab] 50 mg PO Q6HR PRN #14 tablet 01/12/17 12/26/17 Unknown Rx levETIRAcetam [Keppra] 500 mg PO BID #60 tablet 03/16/17 12/26/17 Unknown Rx Ondansetron [Zofran Odt] 4 mg PO TID PRN #20 tab.rapdis 08/31/17 12/26/17 Unknown Rx Active Meds: Active Medications Acetaminophen (Tylenol) 650 mg PO Q4H PRN PRN Reason: Pain MILD(1-3)/Fever >100.5/CANALES Famotidine (Pepcid) 10 mg PO BID IVETTE Hydralazine HCl (Apresoline) 5 mg IV Q30MIN PRN PRN Reason: Hypertension Hydromorphone HCl (Dilaudid) 2 mg IV Q4HR PRN PRN Reason: Pain , Severe (7-10) Potassium Chloride (Kcl 10meq/100ml) 10 meq in 100 mls @ 100 mls/hr IV Q1H IVETTE Stop: 12/26/17 08:59 Potassium Chloride/Dextrose/Sod Cl (D5w/Ns W/Kcl 40meq) 40 meq in 1,000 mls @ 150 mls/hr IV DIRECT IVETTE Insulin Human Regular (Humulin R) 0 units SUB-Q ACHS IVETTE; Protocol Lorazepam (Ativan) 2 mg IV Q4H PRN PRN Reason: Agitation Ondansetron HCl (Zofran) 4 mg IV Q8H PRN PRN Reason: Nausea And Vomiting Sodium Chloride (Sodium Chloride Flush Syringe 10 Ml) 10 ml IV BID IVETTE Sodium Chloride (Sodium Chloride Flush Syringe 10 Ml) 10 ml IV PRN PRN PRN Reason: LINE FLUSH Exam - Constitutional Vitals: Temp Pulse Resp BP Pulse Ox 99.1 F 92 H 14 144/90 100 12/26/17 03:58 12/26/17 06:46 12/26/17 06:46 12/26/17 06:46 12/26/17 06:46 General appearance: Present: no acute distress, obese - EENT Eyes: Present: PERRL ENT: hearing intact, clear oral mucosa - Neck Neck: Present: supple, normal ROM - Respiratory Respiratory effort: normal Respiratory: bilateral: CTA - Cardiovascular Heart Sounds: Present: S1 & S2. Absent: rub, click - Extremities Extremities: pulses symmetrical, No edema Peripheral Pulses: within normal limits - Abdominal General gastrointestinal: Present: soft, tender (epigastric), non-distended, normal bowel sounds - Integumentary Integumentary: Present: clear, warm, dry - Musculoskeletal Musculoskeletal: gait normal, strength equal bilaterally - Psychiatric Psychiatric: appropriate mood/affect, intact judgment & insight - Neurologic Neurologic: CNII-XII intact, moves all extremities Results - Labs CBC & Chem 7: 12/27/17 03:15 12/28/17 08:23 Labs: Abnormal lab results 12/26/17 12/26/17 12/26/17 Range/Units 04:30 04:30 04:30 WBC 16.4 H (4.5-11.0) K/mm3 RBC 5.86 H (3.65-5.03) M/mm3 Hgb 16.3 H (10.1-14.3) gm/dl Hct 47.9 H (30.3-42.9) % RDW 15.9 H (13.2-15.2) % [place] % (Auto) 10.0 H (0.0-7.3) % [place] # 1.6 H (0.0-0.8) K/mm3 Seg Neutrophils # 10.8 H (1.8-7.7) K/mm3 Sodium 132 L (137-145) mmol/L Potassium 2.5 L* (3.6-5.0) mmol/L Chloride 80.3 L (98-107) mmol/L BUN 37 H (7-17) mg/dL Creatinine 1.6 H (0.7-1.2) mg/dL Glucose 158 H (65-100) mg/dL Lactic Acid 3.20 H* (0.7-2.0) mmol/L Calcium 10.4 H (8.4-10.2) mg/dL Total Bilirubin 1.50 H (0.1-1.2) mg/dL Total Creatine Kinase 193 H (30-135) units/L Total Protein 9.2 H (6.3-8.2) g/dL Lipase (13-60) units/L 12/26/17 Range/Units 04:30 WBC (4.5-11.0) K/mm3 RBC (3.65-5.03) M/mm3 Hgb (10.1-14.3) gm/dl Hct (30.3-42.9) % RDW (13.2-15.2) % [place] % (Auto) (0.0-7.3) % [place] # (0.0-0.8) K/mm3 Seg Neutrophils # (1.8-7.7) K/mm3 Sodium (137-145) mmol/L Potassium (3.6-5.0) mmol/L Chloride (98-107) mmol/L BUN (7-17) mg/dL Creatinine (0.7-1.2) mg/dL Glucose (65-100) mg/dL Lactic Acid (0.7-2.0) mmol/L Calcium (8.4-10.2) mg/dL Total Bilirubin (0.1-1.2) mg/dL Total Creatine Kinase (30-135) units/L Total Protein (6.3-8.2) g/dL Lipase 198 H (13-60) units/L Assessment and Plan Acute pancreatitis Intractable N/v Abdominal pain Hyponatremia SIRS ISA
[2017-12-26 09:02] LABS: Bilirubin,Urine NEG (Negative); Blood,Urine SM (Negative); Color,Urine Yellow (Yellow); Hyaline Casts,Urine 17 /LPF; Mucus,Urine FEW /HPF; Urobilinogen,Urine < 2.0 mg/dL (<2.0)
[2017-12-26 09:05] LABS: Amphetamine Screen,Urine PRESUMPTIVE NEGATIVE; Benzodiazepines Screen,Urine PRESUMPTIVE NEGATIVE; Cocaine Screen,Urine PRESUMPTIVE NEGATIVE; Methadone Screen,Urine PRESUMPTIVE NEGATIVE; Opiate Screen,Urine PRESUMPTIVE NEGATIVE
[2017-12-26 09:18] LABS: Cannabinoid Screen,Urine PRESUMPTIVE POSITIVE
[2017-12-26] MEDS: D5W/NS W/KCL 40MEQ 40 MEQ/1,000 ML BAG IV SCH ×2 (09:47→22:16)
[2017-12-26] MEDS: KCL 10MEQ/100ML 10 MEQ/100 ML BAG IV SCH ×2 (10:31→21:51)
[2017-12-26] MEDS: PEPCID PO SCH ×2 (10:31→21:50)
[2017-12-26] MEDS: SODIUM CHLORIDE FLUSH SYRINGE 10 ML IV SCH ×2 (10:32→21:50)
[2017-12-26] MEDS: HumuLIN R SUB-Q SCH ×3 (11:30→21:51)
[2017-12-26] MEDS: ROCEPHIN/NS 1 GM/50 ML 1 GM/50 ML BAG IV SCH ×2 (18:00→22:14)
[2017-12-26] MEDS ORDERED: KCL 10MEQ/100ML 10 MEQ/100 ML BAG IV SCH (21:00)
[2017-12-26] MEDS: DILAUDID IV PRN (23:49)
[2017-12-27 03:47] LABS: Basophils % (Auto) 0.3 % (0.0-1.8); Eosinophils # (Auto) 0.1 K/mm3 (0.0-0.4); Eosinophils % (Auto) 0.7 % (0.0-4.3); Lymphocytes # (Auto) 3.1 K/mm3 (1.2-5.4); Lymphocytes % (Auto) 30.6 % (13.4-35.0); Mean Corpuscular HGB Conc 33 % (30-34); Mean Corpuscular Hemoglobin 28 pg (28-32); Mean Corpuscular Volume 85 fl (79-97); Monocytes # (Auto) 0.9 K/mm3 (0.0-0.8); Monocytes % (Auto) 8.9 % (0.0-7.3); Platelet Count 194 K/mm3 (140-440); Red Blood Count 4.18 M/mm3 (3.65-5.03); Red Cell Distribution Width 15.8 % (13.2-15.2)
[2017-12-27 04:03] LABS: Hematocrit 39.2 % (30.3-42.9); Hemoglobin 12.9 gm/dl (10.1-14.3)
[2017-12-27 04:09] LABS: BUN/Creatinine Ratio 21; Blood Urea Nitrogen 17 mg/dL (7-17); Calcium 8.3 mg/dL (8.4-10.2); Hemolysis Index 1
[2017-12-27] MEDS: D5W/NS W/KCL 40MEQ 40 MEQ/1,000 ML BAG IV SCH ×2 (06:03→21:04)
[2017-12-27] MEDS: DILAUDID IV PRN ×2 (09:44→23:53)
[2017-12-27] MEDS: PEPCID PO SCH ×3 (09:48→21:06)
[2017-12-27] MEDS ORDERED: K-DUR PO NR (10:30)
[2017-12-27] MEDS: HumuLIN R SUB-Q SCH ×4 (11:31→21:06)
[2017-12-27] MEDS: ROCEPHIN/NS 1 GM/50 ML 1 GM/50 ML BAG IV SCH (13:47)
--- NOTE | 2017-12-27 17:35 | Progress Note ---
Assessment and Plan Acute pancreatitis, etiology unclear, likely from marijuana ?? Intractable N/v, due to above, improved Abdominal pain, due to pancreatitis, resolved Hyponatremia, due to dehydration, improved severe hypokalemia, likely GI loss SIRS, due to acute pancreatitis ISA, vasomotor nephropathy, resolved - cont aggresiive iv fluid with D5NS with KCL - advance diet as N/v resolved - cont supportive care, DVtPx - pain and antiemetic as needed Subjective Date of service: 12/27/17 Interval history: Patient seen and examined Improved N/v, tolerated clear liquid diet No abdominal pain Objective - Constitutional Vitals: Vital Signs - 12hr 12/27/17 12/27/17 12/27/17 08:00 08:12 11:43 Temperature 98.1 F 98.0 F Pulse Rate 89 77 Respiratory 20 20 20 Rate Blood Pressure 149/83 101/58 O2 Sat by Pulse 100 99 99 Oximetry General appearance: Present: no acute distress, well-nourished - EENT Eyes: PERRL, EOM intact ENT: hearing intact, clear oral mucosa Ears: bilateral: normal - Neck Neck: supple, normal ROM - Respiratory Respiratory effort: normal Respiratory: bilateral: CTA - Cardiovascular Rhythm: regular Heart Sounds: Present: S1 & S2. Absent: gallop, rub Extremities: pulses intact, No edema, normal color, Full ROM - Gastrointestinal General gastrointestinal: Present: soft, non-tender, non-distended, normal bowel sounds - Genitourinary Female genitourinary: normal - Integumentary Integumentary: clear, warm, dry - Musculoskeletal Musculoskeletal: 1, strength equal bilaterally - Neurologic Neurologic: moves all extremities - Psychiatric Psychiatric: memory intact, appropriate mood/affect, intact judgment & insight - Labs CBC & Chem 7: 12/27/17 03:15 12/28/17 08:23 Labs: Abnormal lab results 12/27/17 12/27/17 12/27/17 Range/Units 03:15 03:15 05:57 RDW 15.8 H (13.2-15.2) % [place] % (Auto) 8.9 H (0.0-7.3) % [place] # 0.9 H (0.0-0.8) K/mm3 Potassium 3.1 L D (3.6-5.0) mmol/L Chloride 95.3 L (98-107) mmol/L Glucose 166 H (65-100) mg/dL POC Glucose 108 H (70-105) Calcium 8.3 L D (8.4-10.2) mg/dL 12/27/17 Range/Units 11:47 RDW (13.2-15.2) % [place] % (Auto) (0.0-7.3) % [place] # (0.0-0.8) K/mm3 Potassium (3.6-5.0) mmol/L Chloride (98-107) mmol/L Glucose (65-100) mg/dL POC Glucose 122 H (70-105) Calcium (8.4-10.2) mg/dL - Imaging and cardiology CT scan - abdomen: report reviewed
[2017-12-27] MEDS: SODIUM CHLORIDE FLUSH SYRINGE 10 ML IV SCH ×2 (18:34→21:06)
[2017-12-28] MEDS: D5W/NS W/KCL 40MEQ 40 MEQ/1,000 ML BAG IV SCH (03:25)
[2017-12-28] MEDS: DILAUDID IV PRN ×2 (05:57→10:03)
[2017-12-28 08:37] VITALS: BP 113/70
[2017-12-28 09:43] LABS: BUN/Creatinine Ratio 8; Blood Urea Nitrogen 4 mg/dL (7-17); Calcium 8.2 mg/dL (8.4-10.2); Hemolysis Index 2
[2017-12-28] MEDS ORDERED: ROCEPHIN/NS 1 GM/50 ML 1 GM/50 ML BAG IV SCH (10:00)
[2017-12-28] MEDS: HumuLIN R SUB-Q SCH ×2 (10:02→13:31)
[2017-12-28] MEDS: PEPCID PO SCH (10:02)
[2017-12-28] MEDS: SODIUM CHLORIDE FLUSH SYRINGE 10 ML IV SCH (10:03)
--- NOTE | 2017-12-28 12:58 | Discharge Summary ---
Providers - Providers Date of Admission: 12/26/17 07:15 Date of discharge: 12/28/17 Attending physician: TANNER ESPINOZA Primary care physician: PEDRO BRO MD Hospitalization Reason for admission: abdominal pain Condition: Good Pertinent studies: Ct abdomen/pelvis: There are stones in the lower pole the left kidney. There is no hydronephrosis. There has been an appendectomy. There is no bowel obstruction, colitis or enteritis.. Uterus and ovaries are unremarkable. There is a small amount of free pelvic fluid which is nonspecific.. Hospital course: Discharge diagnosis; Acute pancreatitis, etiology unclear, likely from marijuana ?? Intractable N/v, due to above, resolved Abdominal pain, due to pancreatitis, resolved Hyponatremia, due to dehydration, resolved Severe hypokalemia, likely due to GI loss, repleted SIRS, due to acute pancreatitis ISA, vasomotor nephropathy, resolved H/o seizure, not on any home meds LL pole Renal stone, w/o hydronephrosis Disposition: TO HOME OR SELFCARE Time spent for discharge: 34 minutes Core Measure Documentation - Palliative Care Palliative Care/ Comfort Measures: Not Applicable - Core Measures Any of the following diagnoses?: none Exam - Constitutional Vitals: Temp Pulse Resp BP Pulse Ox 98.2 F 69 20 113/70 100 12/28/17 08:35 12/28/17 08:35 12/28/17 08:35 12/28/17 08:35 12/28/17 08:35 General appearance: Present: no acute distress, well-nourished - EENT Eyes: Present: PERRL ENT: hearing intact, clear oral mucosa - Neck Neck: Present: supple, normal ROM - Respiratory Respiratory effort: normal Respiratory: bilateral: CTA - Cardiovascular Heart Sounds: Present: S1 & S2. Absent: rub, click - Extremities Extremities: pulses symmetrical, No edema Peripheral Pulses: within normal limits - Abdominal General gastrointestinal: Present: soft, non-tender, non-distended, normal bowel sounds - Integumentary Integumentary: Present: clear, warm, dry - Musculoskeletal Musculoskeletal: gait normal, strength equal bilaterally - Psychiatric Psychiatric: appropriate mood/affect, intact judgment & insight - Neurologic Neurologic: CNII-XII intact, moves all extremities Plan Activity: advance as tolerated Weight Bearing Status: Weight Bear as Tolerated Diet: low fat Follow up with: PRIMARY CAREMD [Primary Care Provider] - 3-5 Days
== END 2017-12-28 16:39 | disposition home or self-care (01) | DRG 871 ==
LOC: ED 03:50 → 4A 07:15
PROVIDERS: ADMIT Internal Medicine; ATTEND Internal Medicine
DX: A41.9 Sepsis, unspecified organism (principal); K85.30 Drug induced acute pancreatitis without necrosis or infection; N17.0 Acute kidney failure with tubular necrosis; E87.1 Hypo-osmolality and hyponatremia; T40.7X1A Poisoning by cannabis (derivatives), accidental (unintentional), initial encounter; E86.0 Dehydration; E87.6 Hypokalemia; Z88.8 Allergy status to other drugs, medicaments and biological substances; J45.909 Unspecified asthma, uncomplicated; Z90.49 Acquired absence of other specified parts of digestive tract; F17.200 Nicotine dependence, unspecified, uncomplicated; F12.10 Cannabis abuse, uncomplicated; Z82.49 Family history of ischemic heart disease and other diseases of the circulatory system; N20.0 Calculus of kidney; R56.9 Unspecified convulsions; T40.7X5A Adverse effect of cannabis (derivatives), initial encounter; Y92.89 Other specified places as the place of occurrence of the external cause
CPT/HCPCS: 36415; 70450; 71045; 74176; 76705; 80048; 80053; 80307; 80320; 81001; 82140; 82550; 82962; 83690; 83735; 84484; 84702; 85025; 85610; 85730; 86850; 86900; 86901; 87040; 87086; 93005; 93010; G0480; J0696; J1170; J2405; J2543; J2765; J3010; J3480; J7030